=== PATIENT | male | born 1960 | race Caucasian/White ===

== ENCOUNTER 2020-11-09 05:30 | Day surgery (SDC) | payer BC ==
[2020-11-09] MEDS ORDERED: Lactated Ringers 1,000 ML IV SCH ×2 (06:00→06:45)
[2020-11-09] MEDS ORDERED: Nozin Nasal Sanitizer NASBOTH ONE (06:00)
[2020-11-09] MEDS ORDERED: Bupivacaine 0.5% 30 ML SDV ONE (06:31)
[2020-11-09] MEDS ORDERED: ceFAZolin 1 GM in Premix Bag 1 BAG IV ONE (07:00)
[2020-11-09] MEDS ORDERED: Propofol 200 MG/20 ML SDV ONE (07:26)
[2020-11-09] MEDS ORDERED: Midazolam 1 MG/ML 2 ML SDV ONE (07:27)
[2020-11-09] MEDS ORDERED: fentaNYL 100 MCG/2 ML SDV ONE (07:27)
[2020-11-09] MEDS ORDERED: Dexamethasone 4 MG/ML SDV ONE (07:53)
[2020-11-09] MEDS ORDERED: Ondansetron 4 MG/2 ML SDV ONE (07:53)
[2020-11-09] MEDS ORDERED: Ketorolac 30 MG/ML SDV ONE (08:06)
[2020-11-09 09:04] VITALS: BP 105/58
[2020-11-09 09:33] VITALS: PULSE 51
--- NOTE | 2020-11-14 17:30 | OR ---
DATE OF PROCEDURE: 11/09/2020 SURGEON: Smith Castillo MD PREOPERATIVE DIAGNOSIS: Chronic olecranon bursitis, right elbow. POSTOPERATIVE DIAGNOSIS: Chronic olecranon bursitis, right elbow. PROCEDURE PERFORMED: Excision of olecranon bursa, right elbow. ANESTHESIA: General. INDICATIONS: Godwin is a pleasant 60-year-old gentleman with a history of chronically inflamed olecranon bursa of the right elbow. It comes and goes in size, and he has had difficulty with infection in the past. It is tender with pressure. He now presents for excision. Risks, benefits, and potential complications were discussed. DESCRIPTION OF PROCEDURE: After adequate anesthesia was obtained, the patient was placed supine, and the right arm was prepped and draped in a sterile fashion. A longitudinal incision was made directly over the olecranon and carried down through the subcutaneous tissues and hemostasis obtained with electrocautery. A small amount of fluid was present within the bursa. The urrutia of the bursa were thickened, consistent with chronic inflammation. The bursa was excised using a combination of Metzenbaum scissors and a 15 blade knife. All portions of the bursa were removed. This left a bed with some bleeding. Bleeding was controlled with electrocautery. Wound was then irrigated and further cautery performed. Once the bleeding was controlled, the bursa was closed with 2-0 Vicryl in the dermal layer and a running 3-0 Monocryl. Steri-Strips were applied. A Hien drain was cut and placed through the inferior aspect of the incision. Drain sponge was cut around this. A sterile gauze was placed over it and light compression wrap. The patient tolerated the procedure well. There were no complications. He was taken from the operating room in stable condition. Smith Castillo MD /[id number]
== END 2020-11-09 09:59 | disposition home or self-care (01) ==
LOC: JP.SDS 05:30
PROVIDERS: ATTEND Specialist
DX: M70.21 Olecranon bursitis, right elbow (principal); I48.91 Unspecified atrial fibrillation; Z98.890 Other specified postprocedural states; Z88.5 Allergy status to narcotic agent
CPT/HCPCS: 24105; 36415; 80053; 85027; A9270; J0690; J1100; J1885; J2250; J2405; J2704; J3010; J3490; J7120

== ENCOUNTER 2025-01-15 06:28 | Day surgery (SDC) | payer OTHER ==
[2025-01-15] MEDS ORDERED: Midazolam 1 MG/ML 2 ML SDV ONE (06:58)
[2025-01-15] MEDS ORDERED: fentaNYL 50 MCG/ML SDV ONE (06:58)
[2025-01-15] MEDS ORDERED: Propofol 200 MG/20 ML SDV ONE ×2 (06:58→07:46)
[2025-01-15] MEDS: Lactated Ringers 1,000 ML IV SCH (08:00)
[2025-01-15 09:04] VITALS: BP 113/79; PULSE 60
== END 2025-01-15 09:18 | disposition home or self-care (01) ==
LOC: JP.SDS 06:28
PROVIDERS: ATTEND Family Medicine
DX: Z12.11 Encounter for screening for malignant neoplasm of colon (principal); D12.0 Benign neoplasm of cecum; D12.2 Benign neoplasm of ascending colon; D12.8 Benign neoplasm of rectum; Z88.5 Allergy status to narcotic agent
CPT/HCPCS: 00811; 45380; 45385; 88305; J2250; J2704; J3010; J7120